=== PATIENT | male | born 1995 | race African-American/Black ===

== ENCOUNTER 2022-06-13 13:14 | Emergency (ER) | payer SELFPAY ==
[~2022-06-13] VITALS: Ht 190.5 cm; Wt 72.6 kg
--- NOTE | 2022-06-13 13:46 | NUR ---
CALLED TO TRIAGE, NO RESPONSE.
--- NOTE | 2022-06-13 14:01 | NUR ---
C/O RIGHT JAW PAIN 02/09 RADIATING TO BACK OF HEAD SINCE YESTERDAY. PT STATES "MIGHT BE ABCESS". PT DENIES TRAUMA. AMBULATED TO BED WITH STEADY GAIT. BREATHING EVEN AND UNLABORED. VSS. AWAITING MD ORDERS.
[2022-06-13] MEDS ORDERED: IBUP-1953 PO (14:33)
[2022-06-13] MEDS ORDERED: HYDR-3972 PO (14:33)
[2022-06-13] MEDS ORDERED: CLIN300C12 PO (14:33)
--- NOTE | 2022-06-13 14:40 | NUR ---
Patient discharged to home in stable condition. Written and verbal after care instructions given. Patient verbalizes understanding of instruction.
[2022-06-13 14:42] VITALS: BP 171/98
== END 2022-06-13 14:42 | disposition home or self-care (01) ==
LOC: ER 13:29
DX: K04.7 Periapical abscess without sinus (principal); K02.9 Dental caries, unspecified; K05.10 Chronic gingivitis, plaque induced; Z60.2 Problems related to living alone